=== PATIENT | female | born 1985 | race Caucasian/White ===

== ENCOUNTER 2016-02-23 21:11 | Emergency (ER) | payer MEDICAID ==
[~2016-02-23] VITALS: Ht 154.9 cm; Wt 69.0 kg
[~2016-02-23 21:11] MED LIST: IRON18TA PO
[2016-02-23 21:18] VITALS: Ht 154.9 cm; Wt 69.0 kg
--- NOTE | 2016-02-24 00:16 | RADRPT ---
PROCEDURE: Renal US. CLINICAL INDICATION: Right flank pain TECHNIQUE: Multiple sonographic images of the kidneys were obtained. The images were reviewed on a PACS workstation. COMPARISON: No prior studies are available for comparison. FINDINGS: The kidneys are well visualized. The right kidney measures 10.42 x 4.1 x 4.8 cm in size. The left ki dney measures 11.24 x 4.8 x 4.8 cm in size. There are no focal areas of abnormal echogenicity. There is no evidence for obstructive uropathy. Normal blood flow bilaterally. The bladder is decompresse d but otherwise unremarkable. IMPRESSION: Unremarkable renal ultrasound. RPTAT:AAJJ Chanel Carey Physician Date Time Electronically viewed and signed by Physician Kecia on 02/24/2016 00:15 LIZ/
--- NOTE | 2016-02-24 00:56 | RADRPT ---
PROCEDURE: US OB. CLINICAL INDICATION: Pelvic pain. TECHNIQUE: Multiple sonographic images of the pelvis were obtained. Transabdominal and transvagin al views of the pelvis are available for review. The images were reviewed on a PACS workstation. COMPARISON: No prior studies are available for comparison. FINDINGS: A single live intrauterine is identified. heart rate is 108 beats per minute. The cr own-rump length is 3.7 mm which corresponds to 6 weeks 0 days gestational age by ultrasound criteria . Estimated date of delivery is 10/18/2016. No subchorionic hemorrhage is identified. Right ovary is was not visualized. Left ovary is normal in appearance of vascular flow. There is no adnexal ma ss or free fluid. IMPRESSION: 1. Single live intrauterine gestation of approximately 6 weeks 0 days. 2. No subchorionic hemorrhage. 3. Right ovary not visualized. RPTAT: HMVK .Judd Josue MD, Date Time Electronically viewed and signed by .Judd Josue MD, on 02/24/2016 00:55 .K/
[2016-02-24 01:28] LABS: ADD UMIC YES; URINE BILIRUBIN (Dip) NEGATIVE (NEGATIVE); URINE BLOOD (Dip) TRACE (NEGATIVE); URINE COLOR LT. YELLOW (YELLOW); URINE GLUCOSE (Dip) NEGATIVE (NEGATIVE); URINE KETONES (Dip) NEGATIVE (NEGATIVE); URINE LEUKOCYTE ESTERASE (Dip) TRACE (NEGATIVE); URINE NITRITE (Dip) NEGATIVE (NEGATIVE); URINE TOTAL PROTEIN (Dip) NEGATIVE (NEGATIVE); URINE UROBILINOGEN (Dip) 0.2 E.U./dL (0.1-1.0)
[2016-02-24] MEDS ORDERED: ACETAMINOPHEN 325 MG TAB PO ONE (01:30)
[2016-02-24 01:45] LABS: BACTERIA,URINE FEW; SQUAMOUS EPITHELIAL CELL,UR FEW; URINE RBCS 0-2 /HPF (0)
[2016-02-24] MEDS ORDERED: ACET500C5 PO (02:14)
[2016-02-24 02:35] VITALS: BP 127/72; PULSE 96; RESP 18; TEMP 97.6
--- NOTE | 2016-02-24 06:05 | ERD ---
ER Documentation Chief Complaint Date/Time DATE: 02/24/16 TIME: 05:57 Chief Complaint RT SIDED BACK PAIN THIS AM; STATES 6WK EGA, DENIES VAG BLEED AND INJURY. HPI 30-year-old female complaining of right flank pain since this morning. Patient describes pain as dull and constant, but is getting worse. Patient is a proximally 6 weeks . Denies dysuria. Denies radiation of the pain. Denies fever or chills. Denies vaginal bleeding. Denies injuries. ROS All systems reviewed and are negative except as per history of present illness. Medications Home Meds Active Scripts Acetaminophen* (Tylophen*) 500 Mg Capsule, 1000 MG PO Q6H Y for PAIN, #20 TAB Prov:STONE GORMAN APPLICATION INTEGRATION SPECIALIST 02/24/16 Reported Medications Iron (Iron) 18 Mg Tablet, 65 MG PO DAILY 06/19/13 Allergies Allergies: Coded Allergies: No Known Allergies (Verified Allergy, Unknown, 06/19/13) ALLERGIC TO SHELLFISH- HIVES PMhx/Soc Medical and Surgical Hx: pt denies Surgical Hx History of Surgery: No Anesthesia Reaction: No Hx Neurological Disorder: No Hx Respiratory Disorders: No Hx Cardiac Disorders: No Hx Psychiatric Problems: No Hx Miscellaneous Medical Probl: Yes (ANEMIA ) Hx Alcohol Use: No Hx Substance Use: No Hx Tobacco Use: No Smoking Status: Never smoker Physical Exam Vitals Vital Signs Date Time Temp Pulse Resp B/P Pulse Ox O2 Delivery O2 Flow Rate FiO2 02/24/16 02:35 97.6 96 18 127/72 Room Air 02/23/16 21:18 98.2 89 18 137/81 99 Physical Exam General impression: Well-developed, well-nourished, 30-year-old female, alert, oriented, appears uncomfortable due to pain Head: Normocephalic, atraumatic. Respiration: Normal respiratory effort. Lungs clear to auscultate bilaterally. No wheezes, rales or rhonchi. Cardiovascular: Regular rate and rhythm. No murmurs or extra heart sounds. Abdomen: Abdomen normal to inspection. Nontender. No masses or organomegaly. Bowel sounds normal. Back: Normal to inspection. No midline spine tenderness. Positive right CVA tenderness Neuro: Mental status normal, speech normal. Skin: Normal turgor. No rash or lesions. Psych: Normal mood and affect. Results 24 hrs Laboratory Tests Test 02/24/16 00:20 Urine Bacteria FEW Urine Bilirubin NEGATIVE Urine Clarity CLEAR Urine Color LT. YELLOW Urine Glucose NEGATIVE% Urine Hemoglobin TRACE Urine Ketones NEGATIVE Urine Leukocyte Esterase TRACE Urine Microscopic RBC 0-2/HPF Urine Microscopic WBC 0-2/HPF Urine Nitrite NEGATIVE Urine Specific Wendell 1.015 Urine Squamous Epithelial Cells FEW Urine Total Protein NEGATIVE Urine Urobilinogen 0.2 E.U./dL Urine pH 7.0 Current Medications Medications (Trade) Dose Ordered Sig/Yuval Route PRN Reason Start Time Stop Time Status Last Admin Dose Admin Acetaminophen (Tylenol Tab) 650 mg ONCE ONCE PO 02/24/16 01:30 02/24/16 01:31 DC 02/24/16 01:48 Procedures/MDM 30-year-old female who is approximately 6 weeks presented to ED with right flank pain 1 day. Her UA showed trace leukocyte, negative nitrite, few bacteria. I doubt that she has urinary tract infection. Likely the trace leukocyte is due to dirty catch. Renal ultrasound did not visualize any renal calculi. No hydronephroses were seen. OB ultrasound showed a single live intrauterine gestation approximately 6 weeks 0 days. No subchorionic hemorrhage. She does not have any abdominal pain or pelvic pain. I doubt ovarian torsion. Tylenol given to the patient in the ED for pain. Tylenol did not relieve patient's pain. It is unclear the cause of patient's pain at this time, however I highly suspect that patient may have a nonobstructing renal calculi that is unable to be visualized on ultrasound. Since patient is , no CT imaging is indicated. Patient is advised to increase fluid intake, and follow-up with her PCP. Patient appears well, stable for discharge and outpatient management. Medical decision making shared with patient and family. Education provided to patient and family. Patient and family expressed understanding of the plan. Medications on discharge: Tylenol. Follow-up: Primary care provider in 2-3 days or return to ED if worse. Departure Diagnosis: Primary Impression: Flank pain Condition: Stable Patient Instructions: Flank Pain, Uncertain Cause Referrals: COMMUNITY CLINICS YOU HAVE RECEIVED A MEDICAL SCREENING EXAM AND THE RESULTS INDICATE THAT YOU DO NOT HAVE A CONDITION THAT REQUIRES URGENT TREATMENT IN THE EMERGENCY DEPARTMENT. FURTHER EVALUATION AND TREATMENT OF YOUR CONDITION CAN WAIT UNTIL YOU ARE SEEN IN YOUR DOCTORS OFFICE WITHIN THE NEXT 1-2 DAYS. IT IS YOUR RESPONSIBILITY TO MAKE AN APPOINTMENT FOR FOLOW-UP CARE. IF YOU HAVE A PRIMARY DOCTOR --you should call your primary doctor and schedule an appointment IF YOU DO NOT HAVE A PRIMARY DOCTOR YOU CAN CALL OUR PHYSICIAN REFERRAL HOTLINE AT IF YOU CAN NOT AFFORD TO SEE A PHYSICIAN YOU CAN CHOSE FROM THE FOLLOWING [facility] [address] [facility] [address] [facility] [address] [facility] [address] [facility] [address] [facility]. [facility] [address] Additional Instructions: FOLLOW UP WITH YOUR PRIMARY CARE PHYSICIAN TOMORROW.Return to this facility if you are not improving as expected. STONE GORMAN NP Feb 24, 2016 06:05
== END 2016-02-24 02:43 | disposition home or self-care (01) ==
LOC: FTE 21:11
DX: O26.891 Other specified pregnancy related conditions, first trimester (principal); R10.9 Unspecified abdominal pain; Z3A.01 Less than 8 weeks gestation of pregnancy
CPT/HCPCS: 76775; 76801; 76817; 81001; Z7502; Z7610; 81003

== ENCOUNTER 2016-03-17 12:16 | Emergency (ER) | payer MEDICAID ==
[~2016-03-17] VITALS: Ht 152.4 cm; Wt 68.5 kg
[~2016-03-17 12:16] MED LIST changes: +ACET500C5 PO
[2016-03-17 12:18] VITALS: Ht 152.4 cm; Wt 68.5 kg
[2016-03-17] MEDS ORDERED: ACETAMINOPHEN 325 MG TAB PO STA (12:38)
[2016-03-17 13:18] LABS: BASOPHILS % 0.4 % (0.0-2.0); EOSINOPHILS # 0.2 10^3/ul (0.0-0.5); EOSINOPHILS % 1.5 % (0.0-7.0); HEMATOCRIT 44.8 % (37.0-47.0); HEMOGLOBIN 14.7 g/dl (12.0-16.0); LYMPHOCYTES # 2.1 10^3/ul (0.8-2.9); LYMPHOCYTES % 21.3 % (15.0-51.0); MEAN CORPUSCULAR HEMOGLOBIN 29.2 pg (29.0-33.0); MEAN CORPUSCULAR HGB CONC 32.8 g/dl (32.0-37.0); MEAN CORPUSCULAR VOLUME 89.1 fl (82.0-101.0); MEAN PLATELET VOLUME 10.5 fl (7.4-10.4); MONOCYTE # 0.7 10^3/ul (0.3-0.9); MONOCYTES % 6.9 % (0.0-11.0); NEUTROPHIL # 6.9 10^3/ul (1.6-7.5); NEUTROPHILS % 69.6 % (39.0-77.0); PLATELET COUNT 286 10^3/UL (140-415); RED BLOOD COUNT 5.03 10^6/ul (4.20-5.40); RED CELL DISTRIBUTION WIDTH 15.6 % (11.5-14.5)
[2016-03-17 13:21] LABS: ADD SCAN DIFF NO
[2016-03-17 13:22] LABS: ABNORMAL IP MESSAGE 1
--- NOTE | 2016-03-17 13:28 | RADRPT ---
PROCEDURE: US Pelvis/OB. CLINICAL INDICATION: vaginal bleeding TECHNIQUE: Multiple sonographic images of the pelvis were obtained utilizing a transabdominal and endovaginal technique. The images were reviewed on a PACS workstation. COMPARISON: 02/23/2016 FINDINGS: There are small irregular cystic structures within the endometrium, measuring 8 and 7 mm. The previ ously seen gestational sac is not clearly visualized. The ovaries are normal. No abnormal adnexal masses are present. The right ovary measures 2.4 x 1.0 x 1.4 cm. The left ovary measures 2.8 x 1.4 x 1.3 cm. No significant free fluid is present within the pelvis. RPTAT: AA IMPRESSION: Previously seen gestational sac is not clearly visualized. Cystic structures within the endometrium may represent focal areas of hemorrhage. The findings may represent an in progress. Close follow-up ultrasound and HCG is recommended. .Vinicius Friedman MD, MD Date Time Electronically viewed and signed by .Vinicius Friedman MD, on 03/17/2016 13:28 .S/
[2016-03-17 13:39] LABS: ADD UMIC YES; URINE BILIRUBIN (Dip) NEGATIVE (NEGATIVE); URINE BLOOD (Dip) 3+ (NEGATIVE); URINE COLOR LT. YELLOW (YELLOW); URINE GLUCOSE (Dip) NEGATIVE (NEGATIVE); URINE KETONES (Dip) NEGATIVE (NEGATIVE); URINE LEUKOCYTE ESTERASE (Dip) NEGATIVE (NEGATIVE); URINE NITRITE (Dip) NEGATIVE (NEGATIVE); URINE TOTAL PROTEIN (Dip) NEGATIVE (NEGATIVE); URINE UROBILINOGEN (Dip) 0.2 E.U./dL (0.1-1.0)
[2016-03-17 13:53] LABS: BACTERIA,URINE RARE; URINE RBCS 0-2 /HPF (0)
[2016-03-17] MEDS ORDERED: ACET500C5 PO (14:11)
--- NOTE | 2016-03-17 14:15 | ERD ---
ER Documentation Chief Complaint Date/Time DATE: 03/17/16 TIME: 14:12 Chief Complaint Complains of vag bleed and HPI This 22-year-old female complains of vaginal bleeding for the last 1 day. She knows some clots. She has some low back pain but minimal pelvic cramping. She denies fevers, vomiting. She is a G3 para 1. She has a history of ultrasound showing a 10 week by dates. ROS All systems reviewed and are negative except as per history of present illness. Medications Home Meds Active Scripts Acetaminophen* (Tylophen*) 500 Mg Capsule, 1 CAP PO Q6H Y for PAIN AND OR ELEVATED TEMP, #15 CAP Prov:RAINA RYDER MD 03/17/16 Acetaminophen* (Tylophen*) 500 Mg Capsule, 1000 MG PO Q6H Y for PAIN, #20 TAB Prov:STONE GORMAN METER READING CLERK 02/24/16 Reported Medications Iron (Iron) 18 Mg Tablet, 65 MG PO DAILY 06/19/13 Allergies Allergies: Coded Allergies: No Known Allergies (Verified Allergy, Unknown, 06/19/13) ALLERGIC TO SHELLFISH- HIVES PMhx/Soc Medical and Surgical Hx: pt denies Medical Hx, pt denies Surgical Hx History of Surgery: No Anesthesia Reaction: No Hx Neurological Disorder: No Hx Respiratory Disorders: No Hx Cardiac Disorders: No Hx Psychiatric Problems: No Hx Miscellaneous Medical Probl: Yes (ANEMIA ) Hx Alcohol Use: No Hx Substance Use: No Hx Tobacco Use: No Physical Exam Vitals Vital Signs Date Time Temp Pulse Resp B/P Pulse Ox O2 Delivery O2 Flow Rate FiO2 03/17/16 12:18 98.7 91 20 129/86 100 Physical Exam Const: [] Head: Atraumatic Eyes: Normal Conjunctiva ENT: Normal External Ears, Nose and Mouth. Neck: Full range of motion..~ No meningismus. Resp: Clear to auscultation bilaterally Cardio: Regular rate and rhythm, no murmurs Abd: Soft, non tender, non distended. Normal bowel sounds Skin: No petechiae or rashes Back: No midline or flank tenderness Ext: No cyanosis, or edema Neur: Awake and alert Psych: Normal Mood and Affect Result Diagram: 03/17/16 1255 Results 24 hrs Laboratory Tests Test 03/17/16 12:55 Basophils # 0.010^3/ul Basophils % 0.4% Beta HCG, Quantitative 26060.0mIU/ml Differential Comment N Eosinophils # 0.210^3/ul Eosinophils % 1.5% Hematocrit 44.8% Hemoglobin 14.7g/dl Lymphocytes # 2.110^3/ul Lymphocytes % 21.3% Mean Corpuscular Hemoglobin 29.2pg Mean Corpuscular Hemoglobin Concent 32.8g/dl Mean Corpuscular Volume 89.1fl Mean Platelet Volume 10.5fl Monocytes # 0.710^3/ul Monocytes % 6.9% Neutrophils # 6.910^3/ul Neutrophils % 69.6% Nucleated Red Blood Cells # 0.010^3/ul Nucleated Red Blood Cells % 0.0/100WBC Platelet Count 79431^3/UL Red Blood Count 5.0310^6/ul Red Cell Distribution Width 15.6% Urine Bacteria RARE Urine Bilirubin NEGATIVE Urine Clarity CLEAR Urine Color LT. YELLOW Urine Epithelial Cells RARE Urine Glucose NEGATIVE% Urine Hemoglobin 3+ Urine Ketones NEGATIVE Urine Leukocyte Esterase NEGATIVE Urine Microscopic RBC 0-2/HPF Urine Microscopic WBC 0-2/HPF Urine Nitrite NEGATIVE Urine Specific Palmer <=1.005 Urine Total Protein NEGATIVE Urine Urobilinogen 0.2 E.U./dL Urine pH 6.5 White Blood Count 10.010^3/ul Current Medications Medications (Trade) Dose Ordered Sig/Yuval Route PRN Reason Start Time Stop Time Status Last Admin Dose Admin Acetaminophen (Tylenol Tab) 650 mg ONCE STAT PO 03/17/16 12:38 03/17/16 12:39 DC 03/17/16 12:46 Procedures/MDM Pelvic ultrasound shows 2 small cystic structures in the endometrial cavity but no formed . There is no evidence of a previously seen gestational sac on prior ultrasound. There is no evidence of adnexal masses. Patient's hCG levels are 13,000. Patient is Rh+. Patient presents with vaginal bleeding first trimester with with no visible intrauterine . Suspicion for ectopic is low given previous history of intrauterine noted on ultrasound and patient history. Patient has vaginal bleeding , likely incomplete or in progress. Patient is advised to follow-up with OB and advised to epeat hCG levels 2 days as molar in the differential as well. Patient should return for fevers, vomiting, new or worsening symptoms. There are no signs or symptoms to suggest acute abdomen. Departure Diagnosis: Primary Impression: Vaginal bleeding in patient at less than 20 weeks ges... Condition: Stable Patient Instructions: Bleeding During Early Additional Instructions: Unable to see normal and ultrasound. May be miscarriage in progress . Recommend repeat hormone level in 48 hours. Recheck sooner for fevers, vomiting, new symptoms. See OB this week for follow-up. RAINA RYDER MD Mar 17, 2016 14:15
== END 2016-03-17 14:44 | disposition home or self-care (01) ==
LOC: FTE 12:16
DX: O20.9 Hemorrhage in early pregnancy, unspecified (principal); R10.2 Pelvic and perineal pain; Z3A.10 10 weeks gestation of pregnancy
CPT/HCPCS: 36415; 76801; 76817; 81001; 84702; 85025; 86900; 86901; Z7502; Z7610; 81003